=== PATIENT | female | born 1960 | race American Indian/Alaskan Native ===

== ENCOUNTER 2019-03-09 11:35 | Emergency (ER) | payer SELFPAY ==
--- NOTE | 2019-03-09 11:48 | Event Note ---
ED Screening Note ED Screening Note: pt presents with neck pain, tingling down her right arm/fingers, pain in the right arm had a neck fusion in 2009 no fall or injury This initial assessment/diagnostic orders/clinical plan/treatment(s) is/are subject to change based on patients health status, clinical progression and re- assessment by fellow clinical providers in the ED. Further treatment and workup at subsequent clinical providers discretion. Patient/guardian urged not to elope from the ED as their condition may be serious if not clinically assessed and managed. Initial orders include: CT C-spine
[2019-03-09 11:49] VITALS: BP 128/74
--- NOTE | 2019-03-09 12:57 | Emergency Department Report ---
ED General Adult HPI - General Chief complaint: Neck Pain/Injury Stated complaint: TINGLING IN (R) ARM Time Seen by Provider: 03/09/19 11:47 Source: patient Mode of arrival: Ambulatory Limitations: No Limitations - History of Present Illness Initial comments: Mrs. Burks is a pleasant healthy 58-year-old female with past history of neck fusion and cervical radiculopathy who presents with right arm tingling and throbbing. She had these symptoms prior to Fusion. The neck fusion occurred in [place] in 2009. Over the years the right arm pain has worsened. She went to make sure that she did not have any arthritis. She has a tingling throbbing sensation from her shoulder down to her hand. She states that sometimes her right arm feels contracted. She feels like the muscles are tense. -: Gradual, year(s) Quality: aching Consistency: constant Improves with: cold therapy Associated Symptoms: denies other symptoms - Related Data Previous Rx's Medication Instructions Recorded Last Taken Type Ibuprofen [Motrin] 800 mg PO Q8H #60 tablet 05/23/14 Unknown Rx oxyCODONE /ACETAMINOPHEN [Percocet 1 tab PO Q6HR PRN #20 tablet 05/23/14 Unknown Rx 5/325] Ibuprofen [Motrin 400 MG tab] 400 mg PO TID 4 Days #12 tablet 03/09/19 Unknown Rx oxyCODONE /ACETAMINOPHEN [Percocet 1 tab PO Q6HR PRN #10 tablet 03/09/19 Unknown Rx 5/325] Allergies Allergy/AdvReac Type Severity Reaction Status Date / Time No Known Allergies Allergy Verified 03/09/19 11:36 ED Review of Systems ROS: Stated complaint: TINGLING IN (R) ARM Other details as noted in HPI Constitutional: denies: fever, malaise Cardiovascular: denies: chest pain Gastrointestinal: denies: abdominal pain Neurological: paresthesias. denies: weakness ED Past Medical Hx - Past Medical History Previous Medical History?: No - Surgical History Additional Surgical History: FUSION ON NECK 2009, PLATE IN LEFT LEG - Social History Smoking Status: Never Smoker Substance Use Type: Alcohol - Medications Home Medications: Home Medications Medication Instructions Recorded Confirmed Last Taken Type Ibuprofen [Motrin] 800 mg PO Q8H #60 tablet 05/23/14 Unknown Rx oxyCODONE /ACETAMINOPHEN [Percocet 1 tab PO Q6HR PRN #20 tablet 05/23/14 Unknown Rx 5/325] Ibuprofen [Motrin 400 MG tab] 400 mg PO TID 4 Days #12 tablet 03/09/19 Unknown Rx oxyCODONE /ACETAMINOPHEN [Percocet 1 tab PO Q6HR PRN #10 tablet 03/09/19 Unknown Rx 5/325] ED Physical Exam - General Limitations: No Limitations General appearance: alert, in no apparent distress - Head Head exam: Present: atraumatic, normocephalic - Eye Eye exam: Present: normal appearance. Absent: scleral icterus, conjunctival injection - Neck Neck exam: Present: normal inspection, full ROM - Respiratory Respiratory exam: Absent: respiratory distress - Neurological Exam Neurological exam: Present: alert - Psychiatric Psychiatric exam: Present: normal affect, normal mood - Skin Skin exam: Present: warm, dry, intact, normal color - Other Other exam information: Full range of motion right arm moves fluidly intact strength ED Course Vital Signs 03/09/19 11:47 Temperature 98.3 F Pulse Rate 58 L Respiratory 18 Rate Blood Pressure 128/74 O2 Sat by Pulse 98 Oximetry ED Medical Decision Making - Radiology Data CT cervical spine: DDD no acute process - Medical Decision Making Ms. Burks presents with mild to moderate pain but cervical radiculopathy. Prescribed ibuprofen and Percocet. Strongly encouraged her to contact her health insurance for preferred in network provider for comprehensive outpatient care. Critical care attestation.: If time is entered above; I have spent that time in minutes in the direct care of this critically ill patient, excluding procedure time. ED Disposition Clinical Impression: Cervical radiculopathy, Degenerative disc disease, cervical Disposition: DC- TO HOME OR SELFCARE Is pt being admited?: No Does the pt Need Aspirin: No Condition: Stable Instructions: Cervical Radiculopathy (ED) Additional Instructions: Please contact your health insurance for a preferred in network primary care physician Prescriptions: Ibuprofen [Motrin 400 MG tab] 400 mg PO TID 4 Days #12 tablet oxyCODONE /ACETAMINOPHEN [Percocet 5/325] 1 tab PO Q6HR PRN #10 tablet PRN Reason: Pain Forms: Work/School Release Form(ED)
--- NOTE | 2019-03-09 13:50 | Cat Scan Report ---
CT cervical spine wo con INDICATION / CLINICAL INFORMATION: 58 years Female; neck pain, tingling right arm, hx of fusion. TECHNIQUE: Axial CT images of the cervical spine were obtained. Sagittal and coronal reformatted images were pr oduced. All CT scans at this location are performed using CT dose reduction for ALARA by means of aut omated exposure control. COMPARISON: None available. FINDINGS: POST-SURGICAL CHANGES: Anterior fusion seen from C4 through C6. Interbody fusion noted at these level s as well, which appears to be solid. ALIGNMENT: Normal cervical lordosis seen without significant scoliosis. VERTEBRAE: No signs of fracture. Vertebral bodies are grossly normal in height and nonoperative level s. Minimal uncinate hypertrophy seen on the right at C6-C7, resulting in mild foraminal narrowing. T here is also osseous foraminal narrowing on the right at the fused C5 - 6 level, from uncinate hypert rophy. INTRAVERTEBRAL DISCS: Disc space narrowing seen at C3-4. Mild disc disease suggested at this level, a s well as C6-7. No definitive signs of significant canal stenosis appreciated. PARASPINAL SOFT TISSUES: No significant abnormality. ADDITIONAL FINDINGS: None. IMPRESSION: 1. Degenerative and postoperative changes of the cervical spine as described above. No definitive cau se for patient's symptomatology seen. No definitive signs of epidural fluid collection or discitis. F ollow-up with MRI, as clinically warranted. Signer Name: Darien Barajas MD, III Signed: 03/09/2019 1:46 PM Workstation Name: [id number]
== END 2019-03-09 13:38 | disposition home or self-care (01) ==
LOC: ED 11:35
DX: M54.12 Radiculopathy, cervical region (principal); M50.30 Other cervical disc degeneration, unspecified cervical region; Z79.899 Other long term (current) drug therapy
CPT/HCPCS: 72125

== ENCOUNTER 2019-04-20 06:28 | Emergency (ER) | payer MEDICAID, OTHER ==
[2019-04-20 06:35] VITALS: BP 133/75
[2019-04-20 07:08] LABS: Basophils # (Auto) 0.1 K/mm3 (0.0-0.1); Basophils % (Auto) 1.3 % (0.0-1.8); Eosinophils # (Auto) 0.1 K/mm3 (0.0-0.4); Eosinophils % (Auto) 1.4 % (0.0-4.3); Hematocrit 37.1 % (30.3-42.9); Hemoglobin 12.2 gm/dl (10.1-14.3); Lymphocytes # (Auto) 2.1 K/mm3 (1.2-5.4); Lymphocytes % (Auto) 44.8 % (13.4-35.0); Mean Corpuscular HGB Conc 33 % (30-34); Mean Corpuscular Volume 89 fl (79-97); Monocytes # (Auto) 0.5 K/mm3 (0.0-0.8); Monocytes % (Auto) 9.8 % (0.0-7.3); Platelet Count 216 K/mm3 (140-440); Red Blood Count 4.19 M/mm3 (3.65-5.03); Red Cell Distribution Width 13.6 % (13.2-15.2)
[2019-04-20 07:14] LABS: Bacteria,Urine 1+ /HPF (Negative); Bilirubin,Urine NEG (Negative); Blood,Urine NEG (Negative); Color,Urine Yellow (Yellow); Mucus,Urine 2+ /HPF; Protein,Urine <15 mg/dL mg/dL (Negative); Urobilinogen,Urine < 2.0 mg/dL (<2.0)
--- NOTE | 2019-04-20 07:47 | Emergency Department Report ---
ED Abdominal Pain HPI - General Chief Complaint: Abdominal Pain Stated Complaint: ABD PAIN Time Seen by Provider: 04/20/19 07:04 Source: patient Mode of arrival: Ambulatory Limitations: No Limitations - History of Present Illness Initial Comments: This is a 58-year-old -Turkish female who presents to the emergency room with lower abdominal pain for one week. No significant Patient states she was visiting [facility] last week when symptoms started. She reports lower abdominal pain that is intermittent, sharp in intensity lasting for several minutes to 1 hour. She reports normal bowel movements, urinary frequency, and lower back pain. She denies nausea, vomiting, fever, chills, diarrhea, or constipation. MD Complaint: abdominal pain Onset/Timin -: week(s) Location: LLQ, RLQ Radiation: none Migration to: no migration Severity: moderate Severity scale (0 -10): 5 Quality: aching, sharp Consistency: intermittent Improves With: nothing Worsens With: nothing Associated Symptoms: denies other symptoms - Related Data Previous Rx's Medication Instructions Recorded Last Taken Type Ibuprofen [Motrin] 800 mg PO Q8H #60 tablet 05/23/14 Unknown Rx oxyCODONE /ACETAMINOPHEN [Percocet 1 tab PO Q6HR PRN #20 tablet 05/23/14 Unknown Rx 5/325] Ibuprofen [Motrin 400 MG tab] 400 mg PO TID 4 Days #12 tablet 03/09/19 Unknown Rx oxyCODONE /ACETAMINOPHEN [Percocet 1 tab PO Q6HR PRN #10 tablet 03/09/19 Unknown Rx 5/325] Allergies Allergy/AdvReac Type Severity Reaction Status Date / Time No Known Allergies Allergy Verified 03/09/19 11:36 ED Review of Systems ROS: Stated complaint: ABD PAIN Other details as noted in HPI Constitutional: denies: chills, fever Respiratory: denies: cough, shortness of breath, wheezing Cardiovascular: denies: chest pain, palpitations Gastrointestinal: abdominal pain. denies: nausea, diarrhea Genitourinary: denies: urgency, dysuria, discharge Musculoskeletal: back pain. denies: joint swelling, arthralgia Skin: denies: rash, lesions Neurological: denies: headache, weakness, paresthesias Psychiatric: denies: anxiety, depression ED Past Medical Hx - Past Medical History Previous Medical History?: No - Surgical History Past Surgical History?: Yes Additional Surgical History: FUSION ON NECK 2009, PLATE IN LEFT LEG - Social History Smoking Status: Never Smoker Substance Use Type: Alcohol - Medications Home Medications: Home Medications Medication Instructions Recorded Confirmed Last Taken Type Ibuprofen [Motrin] 800 mg PO Q8H #60 tablet 05/23/14 Unknown Rx oxyCODONE /ACETAMINOPHEN [Percocet 1 tab PO Q6HR PRN #20 tablet 05/23/14 Unknown Rx 5/325] Ibuprofen [Motrin 400 MG tab] 400 mg PO TID 4 Days #12 tablet 03/09/19 Unknown Rx oxyCODONE /ACETAMINOPHEN [Percocet 1 tab PO Q6HR PRN #10 tablet 03/09/19 Unknown Rx 5/325] ED Physical Exam - General Limitations: No Limitations General appearance: alert, in no apparent distress, obese - Respiratory Respiratory exam: Present: normal lung sounds bilaterally. Absent: respiratory distress - Cardiovascular Cardiovascular Exam: Present: regular rate, normal rhythm. Absent: systolic murmur, diastolic murmur, rubs, gallop - GI/Abdominal GI/Abdominal exam: Present: soft, tenderness (right lower quadrant and right upper quadrant), normal bowel sounds. Absent: distended, guarding, rebound, rigid, organomegaly, mass, pulsatile mass, hernia - Back Exam Back exam: Absent: CVA tenderness (R), CVA tenderness (L) - Neurological Exam Neurological exam: Present: alert, oriented X3 - Psychiatric Psychiatric exam: Present: normal affect, normal mood - Skin Skin exam: Present: warm, dry, intact, normal color. Absent: rash ED Course Vital Signs 04/20/19 06:34 Temperature 97.7 F Pulse Rate 66 Respiratory 18 Rate Blood Pressure 133/75 O2 Sat by Pulse 97 Oximetry ED Medical Decision Making - Lab Data Result diagrams: 04/20/19 06:48 04/20/19 06:48 Lab Results 04/20/19 04/20/19 04/20/19 Range/Units 06:48 06:48 Unknown WBC 4.7 (4.5-11.0) K/mm3 RBC 4.19 (3.65-5.03) M/mm3 Hgb 12.2 (10.1-14.3) gm/dl Hct 37.1 (30.3-42.9) % MCV 89 (79-97) fl MCH 29 (28-32) pg MCHC 33 (30-34) % RDW 13.6 (13.2-15.2) % Plt Count 216 (140-440) K/mm3 Lymph % (Auto) 44.8 H (13.4-35.0) % [place] % (Auto) 9.8 H (0.0-7.3) % Eos % (Auto) 1.4 (0.0-4.3) % Baso % (Auto) 1.3 (0.0-1.8) % Lymph # 2.1 (1.2-5.4) K/mm3 [place] # 0.5 (0.0-0.8) K/mm3 Eos # 0.1 (0.0-0.4) K/mm3 Baso # 0.1 (0.0-0.1) K/mm3 Seg Neutrophils % 42.7 (40.0-70.0) % Seg Neutrophils # 2.0 (1.8-7.7) K/mm3 Sodium 141 (137-145) mmol/L Potassium 3.9 (3.6-5.0) mmol/L Chloride 107.0 (98-107) mmol/L Carbon Dioxide 20 L (22-30) mmol/L Anion Gap 18 mmol/L BUN 16 (7-17) mg/dL Creatinine 0.5 L (0.7-1.2) mg/dL Estimated GFR > 60 ml/min BUN/Creatinine Ratio 32 % Glucose 118 H (65-100) mg/dL Calcium 9.1 (8.4-10.2) mg/dL Total Bilirubin 0.60 (0.1-1.2) mg/dL AST 18 (5-40) units/L ALT 13 (7-56) units/L Alkaline Phosphatase 89 (35-129) units/L Total Protein 7.2 (6.3-8.2) g/dL Albumin 4.2 (3.9-5) g/dL Albumin/Globulin Ratio 1.4 % Urine Color Yellow (Yellow) Urine Turbidity Clear (Clear) Urine pH 5.0 (5.0-7.0) Ur Specific [place] 1.029 (1.003-1.030) Urine Protein <15 mg/dl (Negative) mg/dL Urine Glucose (UA) Neg (Negative) mg/dL Urine Ketones Neg (Negative) mg/dL Urine Blood Neg (Negative) Urine Nitrite Neg (Negative) Urine Bilirubin Neg (Negative) Urine Urobilinogen < 2.0 (<2.0) mg/dL Ur Leukocyte Esterase Neg (Negative) Urine WBC (Auto) 1.0 (0.0-6.0) /HPF Urine RBC (Auto) 3.0 (0.0-6.0) /HPF U Epithel Cells (Auto) 1.0 (0-13.0) /HPF Urine Bacteria (Auto) 1+ (Negative) /HPF Urine Mucus 2+ /HPF - Radiology Data Radiology results: report reviewed CT ABDOMEN AND PELVIS WITH CONTRAST HISTORY: right lower quadrant and right upper quadrant pain COMPARISON: None TECHNIQUE: Routine abdominal and pelvic CT exam performed following intravenous contrast administration. Consent was obtained prior to the administration of the contrast. Note: All CT scans at this location are performed using CT dose reduction employed for [facility] by means of automated exposure control. CONTRAST: 100 mL Omnipaque 300. FINDINGS: CT ABDOMEN: Lung Bases: A small pericardial effusion. The lung bases are clear. Liver: Liver is mildly enlarged with the right lobe measuring 17 cm in length. A few tiny benign hepatic cysts in the right lobe. No liver mass or nodularity. The overall density of the liver is normal. Biliary: Normal gallbladder and bile ducts. No cholelithiasis. No pericholecystic fluid. Spleen: Normal and unenlarged. Pancreas: Normal. Adrenals: Normal. Kidneys: No stones, pelvocaliectasis, ureterectasis. No perinephric or periureteral stranding. No mass or cyst. Lymphatics: No lymphadenopathy. Vasculature: No significant abnormality. Bowel/Peritoneum: No significant abnormality. No free air. No free fluid. Normal appendix. CT PELVIC: : Normal uterus and ovaries. No adnexal mass or free fluid. Normal rectum and sigmoid colon. Osseous Structures: No significant abnormality. Additional Findings: Mild rectus diastases and a small fat-containing umbilical hernia. IMPRESSION: 1. Mild hepatomegaly but no other significant liver abnormality. 2. No cholelithiasis and no signs of acute cholecystitis. 3. No signs of pancreatitis. 4. No urinary calculus or signs of pyelonephritis. 5. Normal pelvis. - Medical Decision Making Patient seen by this provider. Vitals are stable and patient in no acute distress. Labs obtained and unremarkable. CT of abdomen and pelvis findings of 1. Mild hepatomegaly but no other significant liver abnormality. 2. No cholel ithiasis and no signs of acute cholecystitis. 3. No signs of pancreatitis. 4. No urinary calculus or signs of pyelonephritis. 5. Normal pelvis. Referral to PCP for follow up. Patient discharged home stable. Instructed to return to the ER with worsening symptoms. Critical care attestation.: If time is entered above; I have spent that time in minutes in the direct care of this critically ill patient, excluding procedure time. ED Disposition Clinical Impression: Abdominal pain Qualifiers: Abdominal location: lower abdomen, unspecified Qualified Code(s): R10.30 - Lower abdominal pain, unspecified Disposition: DC- TO HOME OR SELFCARE Is pt being admited?: No Does the pt Need Aspirin: No Condition: Stable Instructions: Abdominal Pain (ED) Additional Instructions: Follow-up with your primary care doctor or return to the emergency room with worsening symptoms. Referrals: MARGOT LIMON DO [Referring] - 3-5 Days Forms: Work/School Release Form(ED) Time of Disposition: 11:26
[2019-04-20 08:50] LABS: BUN/Creatinine Ratio 32; Blood Urea Nitrogen 16 mg/dL (7-17); Calcium 9.1 mg/dL (8.4-10.2); Hemolysis Index 7
[2019-04-20 09:15] LABS: Alanine Aminotransferase 13 units/L (7-56); Albumin 4.2 g/dL (3.9-5)
--- NOTE | 2019-04-20 10:33 | Cat Scan Report ---
CT ABDOMEN AND PELVIS WITH CONTRAST HISTORY: right lower quadrant and right upper quadrant pain COMPARISON: None TECHNIQUE: Routine abdominal and pelvic CT exam performed following intravenous contrast administrat ion. Consent was obtained prior to the administration of the contrast. Note: All CT scans at this [facility] ation are performed using CT dose reduction employed for ALARA by means of automated exposure control . CONTRAST: 100 mL Omnipaque 300. FINDINGS: CT ABDOMEN: Lung Bases: A small pericardial effusion. The lung bases are clear. Liver: Liver is mildly enlarged with the right lobe measuring 17 cm in length. A few tiny benign hepa tic cysts in the right lobe. No liver mass or nodularity. The overall density of the liver is normal. Biliary: Normal gallbladder and bile ducts. No cholelithiasis. No pericholecystic fluid. Spleen: Normal and unenlarged. Pancreas: Normal. Adrenals: Normal. Kidneys: No stones, pelvocaliectasis, ureterectasis. No perinephric or periureteral stranding. No mas s or cyst. Lymphatics: No lymphadenopathy. Vasculature: No significant abnormality. Bowel/Peritoneum: No significant abnormality. No free air. No free fluid. Normal appendix. CT PELVIC: : Normal uterus and ovaries. No adnexal mass or free fluid. Normal rectum and sigmoid colon. Osseous Structures: No significant abnormality. Additional Findings: Mild rectus diastases and a small fat-containing umbilical hernia. IMPRESSION: 1. Mild hepatomegaly but no other significant liver abnormality. 2. No cholelithiasis and no signs of acute cholecystitis. 3. No signs of pancreatitis. 4. No urinary calculus or signs of pyelonephritis. 5. Normal pelvis. Signer Name: Jan Sofia MD Signed: 04/20/2019 10:28 AM Workstation Name: [id number]
== END 2019-04-20 11:35 | disposition home or self-care (01) ==
LOC: ED 06:28
DX: R10.31 Right lower quadrant pain (principal); R10.32 Left lower quadrant pain; Z79.899 Other long term (current) drug therapy
CPT/HCPCS: 36415; 74177; 80053; 81001; 85025; 99284; Q9967

== ENCOUNTER 2019-10-26 19:42 | Inpatient (IN) | payer OTHER ==
[2019-10-26 20:43] LABS: Basophils # (Auto) 0.1 K/mm3 (0.0-0.1); Basophils % (Auto) 1.2 % (0.0-1.8); Eosinophils # (Auto) 0.1 K/mm3 (0.0-0.4); Eosinophils % (Auto) 1.5 % (0.0-4.3); Hematocrit 37.8 % (30.3-42.9); Hemoglobin 12.3 gm/dl (10.1-14.3); Lymphocytes # (Auto) 2.6 K/mm3 (1.2-5.4); Lymphocytes % (Auto) 47.2 % (13.4-35.0); Mean Corpuscular HGB Conc 33 % (30-34); Mean Corpuscular Volume 89 fl (79-97); Monocytes # (Auto) 0.3 K/mm3 (0.0-0.8); Monocytes % (Auto) 5.9 % (0.0-7.3); Platelet Count 236 K/mm3 (140-440); Red Blood Count 4.24 M/mm3 (3.65-5.03); Red Cell Distribution Width 13.4 % (13.2-15.2)
[2019-10-26 20:58] LABS: BUN/Creatinine Ratio 23; Blood Urea Nitrogen 14 mg/dL (7-17); Calcium 9.3 mg/dL (8.4-10.2); Hemolysis Index 9
--- NOTE | 2019-10-26 21:11 | XRay Report ---
CHEST 2 VIEWS INDICATION / CLINICAL INFORMATION: Chest Pain. COMPARISON: 06/18/13. FINDINGS: SUPPORT DEVICES: None. HEART / MEDIASTINUM: The heart size and pulmonary vasculature are normal. The aorta is normal in denisa constantino. LUNGS / PLEURA: No significant pulmonary or pleural abnormality. No pneumothorax. ADDITIONAL FINDINGS: There are surgical changes in the lower cervical spine. IMPRESSION: No acute abnormality or significant change. Signer Name: Lowell Green MD Signed: 10/26/2019 9:07 PM Workstation Name: [id number]
[2019-10-26] MEDS ORDERED: NITROGLYCERIN 2% OINT 1 GM TP ONE (23:01)
[2019-10-26] MEDS ORDERED: ASPIRIN 325 MG TAB PO ONE (23:01)
--- NOTE | 2019-10-26 23:07 | Emergency Department Report ---
HPI - General Chief Complaint: Chest Pain Time Seen by Provider: 10/26/19 22:53 - HPI HPI: Room 5 The patient is a 59-year-old female present with a chief complaint of chest pain. The patient states for the past 2 to 3 days she has had intermittent sub sternal chest tightness. Patient denies shortness of breath, nausea/vomiting or diaphoresis. Patient denies cough or fever. Patient states she is never had a stress test or cardiac catheterization. ED Past Medical Hx - Past Medical History Previous Medical History?: No Hx Hypertension: Yes - Surgical History Past Surgical History?: Yes Additional Surgical History: FUSION ON NECK 2009, PLATE IN LEFT LEG - Family History Family history: no significant - Social History Smoking Status: Never Smoker Substance Use Type: None - Medications Home Medications: Home Medications Medication Instructions Recorded Confirmed Last Taken Type Ibuprofen [Motrin] 800 mg PO Q8H #60 tablet 05/23/14 Unknown Rx oxyCODONE /ACETAMINOPHEN [Percocet 1 tab PO Q6HR PRN #20 tablet 05/23/14 Unknown Rx 5/325] Ibuprofen [Motrin 400 MG tab] 400 mg PO TID 4 Days #12 tablet 03/09/19 Unknown Rx oxyCODONE /ACETAMINOPHEN [Percocet 1 tab PO Q6HR PRN #10 tablet 03/09/19 Unknown Rx 5/325] ED Review of Systems ROS: Stated complaint: TIGHTNESS IN CHEST Other details as noted in HPI Constitutional: no symptoms reported. denies: diaphoresis Eyes: denies: eye pain ENT: denies: throat pain Respiratory: no symptoms reported. denies: shortness of breath Cardiovascular: chest pain Endocrine: no symptoms reported Gastrointestinal: denies: nausea, vomiting Genitourinary: denies: dysuria Musculoskeletal: denies: back pain Neurological: denies: headache Physical Exam - Physical Exam Vital Signs: Vital Signs 10/26/19 19:46 Temperature 98.4 F Pulse Rate 75 Respiratory 20 Rate Blood Pressure 117/70 O2 Sat by Pulse 94 Oximetry Physical Exam: GENERAL: The patient is well-developed well-nourished female lying on stretcher not appearing to be in acute distress. [] HEENT: Normocephalic. Atraumatic. Extraocular motions are intact. Patient has moist mucous membranes. NECK: Supple. Trachea midline CHEST/LUNGS: Clear to auscultation. There is no respiratory distress noted. HEART/CARDIOVASCULAR: Regular. There is no tachycardia. There is no gallop rub or murmur. ABDOMEN: Abdomen is soft, nontender. Patient has normal bowel sounds. There is no abdominal distention. SKIN: There is no rash. There is no diaphoresis. NEURO: The patient is awake, alert, and oriented. The patient is cooperative. The patient has normal speech MUSCULOSKELETAL: There is no evidence of acute injury. ED Course Vital Signs 10/26/19 19:46 Temperature 98.4 F Pulse Rate 75 Respiratory 20 Rate Blood Pressure 117/70 O2 Sat by Pulse 94 Oximetry ED Medical Decision Making - Lab Data Result diagrams: 10/26/19 20:23 10/26/19 20:23 Laboratory Tests 10/26/19 10/26/19 10/26/19 20:23 20:23 22:21 WBC 5.4 RBC 4.24 Hgb 12.3 Hct 37.8 MCV 89 MCH 29 MCHC 33 RDW 13.4 Plt Count 236 Lymph % (Auto) 47.2 H [place] % (Auto) 5.9 Eos % (Auto) 1.5 Baso % (Auto) 1.2 Lymph # 2.6 [place] # 0.3 Eos # 0.1 Baso # 0.1 Seg Neutrophils % 44.2 Seg Neutrophils # 2.4 Sodium 142 Potassium 3.7 Chloride 104.6 Carbon Dioxide 20 L Anion Gap 21 BUN 14 Creatinine 0.6 L Estimated GFR > 60 BUN/Creatinine Ratio 23 Glucose 98 Calcium 9.3 Troponin T < 0.010 < 0.010 - EKG Data -: EKG Interpreted by Me EKG shows normal: sinus rhythm Rate: normal - EKG Data When compared to previous EKG there are: previous EKG unavailable Interpretation: nonspecific ST-T wave april (T wave inversion lead III) - Radiology Data Radiology results: report reviewed (Chest x-ray), image reviewed (Chest x-ray) interpreted by me: Chest x-ray-no focal infiltrates, no pneumothorax Chest x-ray (read by radiologist)-no acute abnormality or significant change - Differential Diagnosis ACS, pericarditis, GERD Critical care attestation.: If time is entered above; I have spent that time in minutes in the direct care of this critically ill patient, excluding procedure time. ED Disposition Clinical Impression: Chest pain Disposition: - OP ADMIT IP TO THIS HOSP Is pt being admited?: Yes Does the pt Need Aspirin: Yes Condition: Fair Instructions: Chest Pain (ED) Referrals: PRIMARY CARE,MD [Primary Care Provider] - 3-5 Days Time of Disposition: 23:13 (Hospitalist paged (Dr. Sarita Holt)) SEB score - Seb Score Age > 65: (0) No Aspirin use within the Past 7 Days: (0) No 3 or more CAD Risk Factors: (0) No 2 or more Angina events in past 24 hrs: (1) Yes Known CAD with more than 50% Stenosis: (0) No Elevated Cardiac Markers: (0) No ST Deviation Greater than 0.5mm: (0) No SEB Score: 1
--- NOTE | 2019-10-26 23:42 | History and Physical Report ---
History of Present Illness History of present illness: 59-year-old woman with a history of hypertension comes emergency room for evaluation. She complains of chest pain in the epigastric area that started 2 days ago. She describes it as a dull, tightness, intermittent lasting for less than 1 minute, intensity 4/10, no radiation, cannot identify exacerbating factor. Denies nausea vomiting, shortness of breath, diaphoresis or palpitation. The patient will be admitted for chest pain evaluation, SEB score 1 Review Of Systems: Constitutional: no weight loss, fever, chills Ears, eyes, nose, mouth and throat: no nasal congestion, no nasal discharge, no sinus pressure, blurry vision, diplopia Neck: No neck pain or rigidity. Cardiovascular: No palpitations, chest pain Respiratory: No shortness of breath, cough Gastrointestinal: No hematochezia Genitourinary : no dysuria, frequency Musculoskeletal: no muscle ache , joint pain Integumentary: no rash, no pruritis Neurological: no parathesias, focal weakness Endocrine: no cold or heat intolerance, no polyuria or polydipsia Hematologic/Lymphatic: no easy bruising, no easy bleeding, no gland swelling Allergic/Immunologic: no urticaria, no angioedema. PAST MEDICAL HISTORY: hypertension PAST SURGICAL HISTORY: Neck, leg SOCIAL HISTORY: Denies alcohol, tobacco, drugs FAMILY HISTORY: Hypertension PUI?: No Medications and Allergies Allergies Allergy/AdvReac Type Severity Reaction Status Date / Time No Known Allergies Allergy Verified 03/09/19 11:36 Home Medications Medication Instructions Recorded Confirmed Last Taken Type Ibuprofen [Motrin] 800 mg PO Q8H #60 tablet 05/23/14 Unknown Rx oxyCODONE /ACETAMINOPHEN [Percocet 1 tab PO Q6HR PRN #20 tablet 05/23/14 Unknown Rx 5/325] Ibuprofen [Motrin 400 MG tab] 400 mg PO TID 4 Days #12 tablet 03/09/19 Unknown Rx oxyCODONE /ACETAMINOPHEN [Percocet 1 tab PO Q6HR PRN #10 tablet 03/09/19 Unknown Rx 5/325] Exam - Physical Exam Narrative exam: Gen. appearance: Patient lying in bed, no apparent distress HEENT: Normocephalic, atraumatic, pupils equally round and reactive to light, extraocular movement intact, and no sclericterus,. No JVD or thyromegaly or nodule,neck supple, no carotid bruit ,mucous membranes moist, no exudate or erythema Heart: S1, S2, regular rate and rhythm Lungs: Clear bilaterally, breathing comfortable Abdomen: Positive bowel sounds, nontender, nondistended, no organomegaly Extremity: no edema, cyanosis, clubbing Skin: No rash, nodules, warm, dry Neuro: Cranial nerves II to XII intact, speech is fluent, moves extremities, sensory intact - Constitutional Vitals: Temp Pulse Resp BP Pulse Ox 98.4 F 75 20 117/70 94 10/26/19 19:46 10/26/19 19:46 10/26/19 19:46 10/26/19 19:46 10/26/19 19:46 Results - Labs CBC & Chem 7: 10/26/19 20:23 10/26/19 20:23 Labs: Abnormal lab results 10/26/19 10/26/19 Range/Units 20:23 20:23 Lymph % (Auto) 47.2 H (13.4-35.0) % Carbon Dioxide 20 L (22-30) mmol/L Creatinine 0.6 L (0.7-1.2) mg/dL - Imaging and Cardiology EKG: image reviewed Chest x-ray: report reviewed Assessment and Plan Assessment Chest pain Check cardiac enzymes, stress test Start aspirin, IV morphine Hypertension Continue outpatient medications DVT prophylaxis
[2019-10-27] MEDS ORDERED: ACETAMINOPHEN 325 MG TAB PO PRN (00:32)
[2019-10-27] MEDS ORDERED: ONDANSETRON 4 MG/2 ML INJ IV PRN (00:32)
[2019-10-27] MEDS ORDERED: MORPHINE 2 MG/1 ML INJ IV PRN (00:32)
[2019-10-27] MEDS ORDERED: hydrALAZINE 20 MG/1 ML INJ IV PRN (00:36)
[2019-10-27 04:11] LABS: Basophils # (Auto) 0.1 K/mm3 (0.0-0.1); Basophils % (Auto) 1.1 % (0.0-1.8); Eosinophils # (Auto) 0.1 K/mm3 (0.0-0.4); Eosinophils % (Auto) 1.4 % (0.0-4.3); Hematocrit 36.8 % (30.3-42.9); Hemoglobin 12.2 gm/dl (10.1-14.3); Lymphocytes # (Auto) 2.6 K/mm3 (1.2-5.4); Lymphocytes % (Auto) 47.6 % (13.4-35.0); Mean Corpuscular HGB Conc 33 % (30-34); Mean Corpuscular Volume 88 fl (79-97); Monocytes # (Auto) 0.4 K/mm3 (0.0-0.8); Monocytes % (Auto) 7.4 % (0.0-7.3); Platelet Count 230 K/mm3 (140-440); Red Blood Count 4.18 M/mm3 (3.65-5.03); Red Cell Distribution Width 13.5 % (13.2-15.2)
[2019-10-27 04:24] LABS: BUN/Creatinine Ratio 34; Blood Urea Nitrogen 17 mg/dL (7-17); Calcium 8.9 mg/dL (8.4-10.2); Hemolysis Index 19
[2019-10-27] MEDS ORDERED: REGADENOSON 0.4 MG/5 ML INJ IV ONE (09:57)
--- NOTE | 2019-10-27 10:57 | Consultation ---
History of Present Illness Consult date: 10/27/19 Requesting physician: TOM PAULA Consult reason: chest pain History of present illness: The pt is a 59 YO female with past medical history significant for chronic back pain s/p vertebral fusion. She is previously unknown to our practice, she sees a PCP regularly. She presented with c/o chest pain for the past 2-3 days. She describes her chest pain as an intermittent, nonradiating, midsternal, aching pain which occurs mostly at night when she tries to go to sleep. She also reports exertional dyspnea and poor exercise tolerance with easy fatigability (cannot climb a flight of stairs without stopping to rest) for the past several months. She sometimes experiences chest tightness with exertion. She denies any n/v, diaphoresis, dizziness or syncope. No cough, fever, chills. She reports that her father in his 50s of AMI. Pt works in home health care. Past History Past Medical History: other (as per HPI) Social history: denies: smoking, alcohol abuse, prescription drug abuse Medications and Allergies Allergies Allergy/AdvReac Type Severity Reaction Status Date / Time No Known Allergies Allergy Verified 03/09/19 11:36 Home Medications Medication Instructions Recorded Confirmed Last Taken Type Ibuprofen [Motrin] 800 mg PO Q8H #60 tablet 05/23/14 10/27/19 Unknown Rx oxyCODONE /ACETAMINOPHEN [Percocet 1 tab PO Q6HR PRN #10 tablet 03/09/1910/26 Unknown Rx 5/325] Active Meds: Active Medications Acetaminophen (Tylenol) 650 mg PO Q4H PRN PRN Reason: Pain MILD(1-3)/Fever >100.5/SOLIS Aspirin (Aspirin) 325 mg PO QDAY [facility] Enoxaparin Sodium (Enoxaparin) 40 mg SUB-Q QDAY [facility] Hydralazine HCl (Apresoline) 5 mg IV Q6H PRN PRN Reason: Hypertension Morphine Sulfate (Morphine) 2 mg IV Q4H PRN PRN Reason: Pain, Moderate (4-6) Ondansetron HCl (Zofran) 4 mg IV Q8H PRN PRN Reason: Nausea And Vomiting Sodium Chloride (Sodium Chloride Flush Syringe 10 Ml) 10 ml IV BID [facility] Sodium Chloride (Sodium Chloride Flush Syringe 10 Ml) 10 ml IV PRN PRN PRN Reason: LINE FLUSH Review of Systems Constitutional: no weight loss, no weight gain, no fever, no chills, no sweats Ears, nose, mouth and throat: no ear pain, no nose pain, no sinus pressure, no sinus pain Cardiovascular: chest pain, dyspnea on exertion, decreased exercise tolerance, no orthopnea, no palpitations, no rapid/irregular heart beat, no edema, no synco pe, no lightheadedness, no high blood pressure, no leg edema Respiratory: dyspnea on exertion, no cough, no congestion, no wheezing, no pain on inspiration Gastrointestinal: no abdominal pain, no nausea, no vomiting, no diarrhea, no constipation, no change in bowel habits Genitourinary Female: no pelvic pain, no flank pain, no dysuria, no urinary frequency, no urgency Musculoskeletal: neck pain (chronic), no shooting arm pain, no arm numbness/tingling, no shooting leg pain, no leg numbness/tingling Integumentary: no rash, no pruritis, no redness, no sores, no wounds Neurological: no head injury, no paralysis, no weakness, no parathesias, no n umbness, no tingling, no seizures, no syncope Psychiatric: no anxiety Endocrine: no cold intolerance, no heat intolerance Hematologic/Lymphatic: no easy bruising Allergic/Immunologic: no urticaria Physical Examination Vital Signs Temp Pulse Resp BP Pulse Ox 98.4 F 75 20 117/70 94 10/26/19 19:46 10/26/19 19:46 10/26/19 19:46 10/26/19 19:46 10/26/19 19:46 General appearance: no acute distress HEENT: Positive: PERRL, Normocephaly, Mucus Membranes Moist Neck: Positive: neck supple, trachea midline Cardiac: Positive: Reg Rate and Rhythm, S1/S2 Lungs: Positive: Decreased Breath Sounds Neuro: Positive: Grossly Intact Abdomen: Negative: Tender Skin: Negative: Rash Musculoskeletal: No Pain Extremities: Absent: edema Results 10/27/19 03:44 10/27/19 03:44 CBC 10/26/19 10/27/19 Range/Units 20:23 03:44 WBC 5.4 5.6 (4.5-11.0) K/mm3 RBC 4.24 4.18 (3.65-5.03) M/mm3 Hgb 12.3 12.2 (10.1-14.3) gm/dl Hct 37.8 36.8 (30.3-42.9) % Plt Count 236 230 (140-440) K/mm3 Lymph # 2.6 2.6 (1.2-5.4) K/mm3 [place] # 0.3 0.4 (0.0-0.8) K/mm3 Eos # 0.1 0.1 (0.0-0.4) K/mm3 Baso # 0.1 0.1 (0.0-0.1) K/mm3 Comprehensive Metabolic Panel 10/26/19 10/27/19 Range/Units 20:23 03:44 Sodium 142 138 (137-145) mmol/L Potassium 3.7 3.7 (3.6-5.0) mmol/L Chloride 104.6 105.9 (98-107) mmol/L Carbon Dioxide 20 L 23 (22-30) mmol/L BUN 14 17 (7-17) mg/dL Creatinine 0.6 L 0.5 L (0.7-1.2) mg/dL Glucose 98 98 (65-100) mg/dL Calcium 9.3 8.9 (8.4-10.2) mg/dL - Imaging and Cardiology Echo: pending EKG: report reviewed, image reviewed EKG interpretations - Telemetry EKG Rhythm: Sinus Rhythm - EKG Sinus rhythms and dysrhythmias: sinus rhythm Assessment and Plan AMI r/o. S/p treadmill stress test this AM which was equivocal. Given pt's clinical presentation and family history of CAD, coronary angiography is recommended for definitive diagnosis. Indications, potential risks and benefits of LHC reviewed with pt and she is agreeable to proceed with LHC in AM. NPO after MN. Obtain echo. Initiate ASA, statin, BB. The patient has been seen in conjunction with Dr. Kam Callahan who agrees with the assessment and plan of care. - Patient Problems (1) Chest pain Current Visit: Yes Status: Acute (2) Chronic back pain Current Visit: Yes Status: Chronic
--- NOTE | 2019-10-27 11:26 | Progress Note ---
Assessment and Plan Assessment and plan: --Chest pain; Serial cardiac enzymes echocardiogram Abnormal stress test Continue aspirin beta-blockers nitrates statins And morphine, Cardiology consult, possible left heart catheterization tomorrow --Gastroesophageal reflux disease; Protonix --Hypertension; moderate control Continue current antihypertensives and PRN medications --Obesity; BMI 32.5 Patient needs weight reduction when medically stable --DVT prophylaxis; Lovenox Monitor closely and adjust management as needed Cardiology recommendations noted and appreciated History Interval history: Patient seen and examined at the bedside Patient's chart and medications reviewed Admitted with chest pain, underwent stress test Which was abnormal per preliminary report by cardiology nurse practitioner Consulted cardiology for possible heart cath tomorrow Patient feels slightly better Complains of mild nausea no vomiting Vital signs reviewed PUI?: No Hospitalist Physical - Constitutional Vitals: Temp Pulse Resp BP Pulse Ox 97.7 F 57 L 20 125/70 99 10/27/19 07:24 10/27/19 10:39 10/27/19 07:24 10/27/19 07:24 10/27/19 07:24 General appearance: Present: no acute distress, well-nourished, obese - EENT Eyes: Present: PERRL, EOM intact - Neck Neck: Present: supple, normal ROM - Respiratory Respiratory effort: normal Respiratory: bilateral: diminished, negative: rales, rhonchi, wheezing - Cardiovascular Rhythm: regular Heart Sounds: Present: S1 & S2 - Extremities Extremities: no ischemia, No edema - Abdominal General gastrointestinal: soft, non-tender, non-distended, normal bowel sounds - Integumentary Integumentary: Present: clear, warm - Psychiatric Psychiatric: appropriate mood/affect, cooperative - Neurologic Neurologic: CNII-XII intact, moves all extremities SEB score - Seb Score Age > 65: (0) No Aspirin use within the Past 7 Days: (0) No 3 or more CAD Risk Factors: (0) No 2 or more Angina events in past 24 hrs: (1) Yes Known CAD with more than 50% Stenosis: (0) No Elevated Cardiac Markers: (0) No ST Deviation Greater than 0.5mm: (0) No SEB Score: 1 Results - Labs CBC & Chem 7: 10/27/19 03:44 10/27/19 03:44 Labs: Laboratory Last Values WBC 5.6 K/mm3 (4.5-11.0) 10/27/19 03:44 RBC 4.18 M/mm3 (3.65-5.03) 10/27/19 03:44 Hgb 12.2 gm/dl (10.1-14.3) 10/27/19 03:44 Hct 36.8 % (30.3-42.9) 10/27/19 03:44 MCV 88 fl (79-97) 10/27/19 03:44 MCH 29 pg (28-32) 10/27/19 03:44 MCHC 33 % (30-34) 10/27/19 03:44 RDW 13.5 % (13.2-15.2) 10/27/19 03:44 Plt Count 230 K/mm3 (140-440) 10/27/19 03:44 Lymph % (Auto) 47.6 % (13.4-35.0) H 10/27/19 03:44 [place] % (Auto) 7.4 % (0.0-7.3) H 10/27/19 03:44 Eos % (Auto) 1.4 % (0.0-4.3) 10/27/19 03:44 Baso % (Auto) 1.1 % (0.0-1.8) 10/27/19 03:44 Lymph # 2.6 K/mm3 (1.2-5.4) 10/27/19 03:44 [place] # 0.4 K/mm3 (0.0-0.8) 10/27/19 03:44 Eos # 0.1 K/mm3 (0.0-0.4) 10/27/19 03:44 Baso # 0.1 K/mm3 (0.0-0.1) 10/27/19 03:44 Seg Neutrophils % 42.5 % (40.0-70.0) 10/27/19 03:44 Seg Neutrophils # 2.4 K/mm3 (1.8-7.7) 10/27/19 03:44 Sodium 138 mmol/L (137-145) 10/27/19 03:44 Potassium 3.7 mmol/L (3.6-5.0) 10/27/19 03:44 Chloride 105.9 mmol/L (98-107) 10/27/19 03:44 Carbon Dioxide 23 mmol/L (22-30) 10/27/19 03:44 Anion Gap 13 mmol/L 10/27/19 03:44 BUN 17 mg/dL (7-17) 10/27/19 03:44 Creatinine 0.5 mg/dL (0.7-1.2) L 10/27/19 03:44 Estimated GFR > 60 ml/min 10/27/19 03:44 BUN/Creatinine Ratio 34 % 10/27/19 03:44 Glucose 98 mg/dL (65-100) 10/27/19 03:44 Calcium 8.9 mg/dL (8.4-10.2) 10/27/19 03:44 Troponin T < 0.010 ng/mL (0.00-0.029) 10/27/19 03:44 Rossi/IV: Voiding Method Toilet IV Catheter Type [left hand] Peripheral IV Active Medications - Current Medications Current Medications: Generic Name Dose Route Start Last Admin Trade Name Freq PRN Reason Stop Dose Admin Acetaminophen 650 mg 10/27/19 00:32 Tylenol PO Q4H PRN Pain MILD(1-3)/Fever >100.5/SOLIS Aspirin 325 mg 10/27/19 10:00 Aspirin PO QDAY [facility] Atorvastatin Calcium 40 mg 10/27/19 22:00 Lipitor PO QHS [facility] Enoxaparin Sodium 40 mg 10/27/19 10:00 Enoxaparin SUB-Q QDAY [facility] Sodium Chloride 500 mls @ 50 mls/hr 10/27/19 13:00 Nacl 0.9% 500 Ml IV 10/27/19 22:59 DIRECT [facility] Metoprolol Tartrate 12.5 mg 10/27/19 22:00 Metoprolol PO BID [facility] Morphine Sulfate 2 mg 10/27/19 00:32 Morphine IV Q4H PRN Pain, Moderate (4-6) Ondansetron HCl 4 mg 10/27/19 00:32 Zofran IV Q8H PRN Nausea And Vomiting Sodium Chloride 10 ml 10/27/19 10:00 Sodium Chloride Flush Syringe 10 Ml IV BID [facility] Sodium Chloride 10 ml 10/27/19 00:32 Sodium Chloride Flush Syringe 10 Ml IV PRN PRN LINE FLUSH
[2019-10-27] MEDS ORDERED: SODIUM CHLORIDE 0.9% 500 ML 500 ML IV SCH (13:00)
[2019-10-27] MEDS: ENOXAPARIN 40 MG/0.4 ML INJ SUB-Q SCH (13:52)
[2019-10-27] MEDS: ASPIRIN 325 MG TAB PO SCH (13:52)
[2019-10-27] MEDS: FAMOTIDINE 20 MG/2 ML INJ IV SCH (21:15)
[2019-10-27] MEDS: METOPROLOL TARTRATE 25 MG TAB PO SCH (21:16)
[2019-10-28 04:07] LABS: Hematocrit 37.8 % (30.3-42.9); Hemoglobin 12.2 gm/dl (10.1-14.3); Mean Corpuscular HGB Conc 32 % (30-34); Mean Corpuscular Volume 89 fl (79-97); Platelet Count 231 K/mm3 (140-440); Red Blood Count 4.25 M/mm3 (3.65-5.03); Red Cell Distribution Width 13.1 % (13.2-15.2)
[2019-10-28 04:28] LABS: BUN/Creatinine Ratio 25; Blood Urea Nitrogen 15 mg/dL (7-17); Calcium 8.8 mg/dL (8.4-10.2); HDL Cholesterol 53 mg/dL (40-59); Hemolysis Index 5; LDL Cholesterol,Direct 150 mg/dL (50-130)
[2019-10-28 04:46] LABS: INR 0.94 (0.87-1.13)
[2019-10-28 06:04] LABS: Anisocytosis 1+; Eosinophils % (Manual) 0 % (0.0-4.3); Total Cells Counted 100
[2019-10-28 06:05] LABS: Platelet Estimate Consistent w Auto
[2019-10-28] MEDS ORDERED: ASPIRIN 325 MG TAB ONE (07:47)
[2019-10-28] MEDS ORDERED: SODIUM CHLORIDE 0.9% 500 ML 500 ML ONE (07:47)
[2019-10-28] MEDS: ASPIRIN 325 MG TAB PO SCH ×2 (07:49→10:34)
[2019-10-28] MEDS ORDERED: SODIUM CHLORIDE 0.9% 500 ML 500 ML IV SCH (08:00)
[2019-10-28] MEDS ORDERED: LIDOCAINE (2%) 20 MG/1 ML VIAL 20 ML MDV INFILTRATI ONE (08:57)
[2019-10-28] MEDS ORDERED: HEPARIN/NS 5000 UNIT/500ML 1,000 ML IR ONE (08:57)
[2019-10-28] MEDS ORDERED: VERAPAMIL 5 MG/2 ML INJ ONE (08:57)
[2019-10-28] MEDS ORDERED: MIDAZOLAM 2 MG/2 ML INJ ONE (09:18)
[2019-10-28] MEDS ORDERED: fentaNYL 100 MCG/2 ML INJ ONE (09:18)
[2019-10-28] MEDS: LIDOCAINE (2%) 20 MG/1 ML VIAL 20 ML MDV INFILTRATI ONE ×3 (09:39→09:45)
[2019-10-28] MEDS: NITROGLYCERIN SYRINGE 3 ML ONE ×2 (09:40→09:44)
[2019-10-28] MEDS: HEPARIN 10,000 UNITS/10 ML VIAL ONE ×2 (09:44→09:46)
[2019-10-28] MEDS: ENOXAPARIN 40 MG/0.4 ML INJ SUB-Q SCH (10:33)
[2019-10-28] MEDS: FAMOTIDINE 20 MG/2 ML INJ IV SCH (10:34)
[2019-10-28] MEDS: METOPROLOL TARTRATE 25 MG TAB PO SCH (10:34)
--- NOTE | 2019-10-28 11:01 | Cardiac Catherization Report ---
The patient is here for heart catheterization. REFERRING PHYSICIAN: Sarita Holt MD INDICATION FOR PROCEDURE: The patient is an exceedingly pleasant 59-year-old female with multiple risk factors including strong family history with abnormal/equivocal stress test and persistent very typical chest pain. The options were discussed with her. She would like to proceed with left heart catheterization. Risks, benefits, potential alternatives explained at length prior to obtaining informed consent. PROCEDURE IN DETAIL: The patient was brought to catheterization lab in a postabsorptive state, prepped and draped in sterile fashion. An 8 mL of 2% lidocaine used to anesthetize the right wrist. A standard 6-[place] hydrophilic sheath used to cannulate the right radial artery via modified Seldinger technique. All exchanges performed to exchange a J-tip guidewire. JL3.5 catheter used to engage the left main. No dampening or ventricularization. Cineangiography performed in multiple projections. JR4 catheter was used to cross the aortic valve under fluoroscopic guidance. Left ventriculography performed in 30 BROCK and 30 KHMER projections via hand injections, catheter flushed. Manual pullback performed with continuous pressure monitoring. Catheter used to engage the right coronary. No dampening or ventricularization. Cineangiography performed in multiple projections. Next, due to the persistent recurrent chest pain and unremarkable coronaries, we decided to proceed with root aortography with a pigtail catheter in KHMER projection. Next, catheter removed from the body of wire, sheath removed. Manual pressure used to achieve hemostasis. I directly supervised the administration of moderate sedation from 9:36 a.m. to 10:00 a.m. with fentanyl and Versed. There were no immediate complications noted. DATA: Aortic pressure is 120/70, LV pressure is 120, LVP of 12 mmHg. Left ventriculography reveals normal systolic performance with estimated ejection fraction of 55-60%. No evidence of aortic stenosis. CORONARY ANATOMY: This is a right dominant system. Left main without significant disease, bifurcates left anterior descending and left circumflex. Left main without significant disease. LAD without significant disease. Left circumflex without significant disease. SEB 3 flow throughout. Right coronary is a moderate sized vessel, courses AV groove, distally bifurcates in the posterior and posterolateral branches. No discrete stenoses identified. SEB 3 flow. Root aortogram reveals normal contour, no evidence of dissection, penetrating aortic ulcer, or aortic insufficiency, normal great vessel anatomy. CONCLUSIONS: 1. No angiographic evidence of significant epicardial coronary disease in this right dominant system. 2. Normal left ventricular systolic performance, estimated ejection fraction of 55-60%. 3. No evidence of aortic stenosis. 4. Normal LVEDP. 5. Normal root aortography without evidence of aortic dissection, penetrating aortic ulcer, or aortic insufficiency. At this point, the patient is clinically stable, chest pain is likely noncardiac. Continue aggressive risk factor modification. We will hold beta blockade as the patient has sinus bradycardia. Follow up with us in the office. Standard radial care. Results of procedure explained in length to the patient and family. All questions and concerns were addressed. JOB# [id number] ADARSH/ELENI
--- NOTE | 2019-10-28 11:33 | Progress Note ---
Assessment and Plan S/p LHC this AM which showed normal coronaries. tte reviewed - normal EF, no significant abnormalities. Chest pain currently resolved. Currently stable cardiac status. Pt may discharge from cardiology standpoint on present cardiac regimen. Recommend follow up in our office with Dr. Kam Callahan within 1 month ([phone]). The patient has been seen in conjunction with Dr. Kam Callahan who agrees with the assessment and plan of care. - Patient Problems (1) Chest pain Current Visit: Yes Status: Resolved (2) Chronic back pain Current Visit: Yes Status: Chronic (3) Normal coronary arteries Current Visit: Yes Status: Chronic Subjective Date of service: 10/28/19 Principal diagnosis: cp Interval history: pt for [facility], no current complaints. tele reviewed - in SR with SB noted overnight. PUI?: No Objective Last Vital Signs Temp 97.3 F L 10/28/19 10:29 Pulse 43 L 10/28/19 10:29 Resp 20 10/28/19 10:29 BP 118/73 10/28/19 10:29 Pulse Ox 100 10/28/19 10:29 - Physical Examination General: No Apparent Distress HEENT: Positive: PERRL, Normocephaly, Mucus Membranes Moist Neck: Positive: neck supple, trachea midline Cardiac: Positive: Reg Rate and Rhythm, S1/S2 Lungs: Positive: Decreased Breath Sounds Neuro: Positive: Grossly Intact Abdomen: Negative: Tender Skin: Negative: Rash Musculoskeletal: No Pain Extremities: Absent: edema - Labs and Meds Coagulation 10/28/19 Range/Units 03:25 PT 12.7 (12.2-14.9) Sec. INR 0.94 (0.87-1.13) Lipids 10/28/19 Range/Units 03:25 Triglycerides 142 (2-149) mg/dL Cholesterol 212 H (50-199) mg/dL HDL Cholesterol 53 (40-59) mg/dL Cholesterol/HDL Ratio 4.00 % CBC 10/28/19 Range/Units 03:25 WBC 4.7 (4.5-11.0) K/mm3 RBC 4.25 (3.65-5.03) M/mm3 Hgb 12.2 (10.1-14.3) gm/dl Hct 37.8 (30.3-42.9) % Plt Count 231 (140-440) K/mm3 Comprehensive Metabolic Panel 10/28/19 Range/Units 03:25 Sodium 139 (137-145) mmol/L Potassium 4.0 (3.6-5.0) mmol/L Chloride 104.2 (98-107) mmol/L Carbon Dioxide 21 L (22-30) mmol/L BUN 15 (7-17) mg/dL Creatinine 0.6 L (0.7-1.2) mg/dL Glucose 114 H (65-100) mg/dL Calcium 8.8 (8.4-10.2) mg/dL - Imaging and Cardiology EKG: report reviewed, image reviewed Echo: report reviewed - Telemetry EKG Rhythm: Sinus Rhythm - EKG Sinus rhythms and dysrhythmias: sinus rhythm
[2019-10-28 11:41] VITALS: BP 118/70
--- NOTE | 2019-10-28 12:06 | Discharge Summary ---
Providers - Providers Date of Admission: 10/27/19 16:45 Date of discharge: 10/28/19 Attending physician: TOM PAULA 10/27/19 11:22 Consult to Physician [CONS] Routine Comment: Consulting Provider: PRASAD BALDWIN Physician Instructions: Reason For Exam: Abnormal stress test 10/28/19 11:29 Consult to Cardiac Rehabilitation [CONS] Routine Reason For Exam: Cardiac Rehab Evaluation Primary care physician: METAL [facility]ER Hospitalization Reason for admission: Chest pain Condition: Stable Pertinent studies: Chest x-ray; no acute abnormality Echocardiogram; normal EF 50 to 55% Stress test; equivocal Heart cath; nonobstructive coronaries, normal EF 50 to 55% Hospital course: 59-year-old woman with a history of hypertension comes emergency room for evaluation. She complains of chest pain in the epigastric area that started 2 days ago. She describes it as a dull, tightness, intermittent lasting for less than 1 minute, intensity 4/10, no radiation, cannot identify exacerbating factor. Denies nausea vomiting, shortness of breath, diaphoresis or palpitation. The patient will be admitted for chest pain evaluation, Patient was admitted symptomatically managed as patient had multiple risk factors, underwent stress test which was equivocal Cardiology evaluated the patient, underwent left heart catheterization, nonobstructive coronaries, normal ejection fraction Cardiology recommended optimizing her medications , advised weight reduction, and follow-up per schedule Today patient is comfortable no new complaints vital signs stable physical examinations unremarkable stable at discharge Discharge diagnosis: --Chest pain; Serial cardiac enzymes echocardiogram Abnormal stress test Continue aspirin beta-blockers nitrates statins And morphine, Cardiology consult, possible left heart catheterization tomorrow --Gastroesophageal reflux disease; Protonix --Hypertension; moderate control Continue current antihypertensives and PRN medications --Obesity; BMI 32.5 Patient needs weight reduction when medically stable --DVT prophylaxis; Lovenox Stable at discharge Disposition: DC-01 TO HOME OR SELFCARE Time spent for discharge: 32 min Core Measure Documentation - Palliative Care Palliative Care/ Comfort Measures: Not Applicable - Core Measures Any of the following diagnoses?: none Exam - Constitutional Vitals: Temp Pulse Resp BP Pulse Ox 97.3 F L 51 L 20 118/70 100 10/28/19 11:40 10/28/19 11:40 10/28/19 11:40 10/28/19 11:40 10/28/19 11:40 General appearance: Present: no acute distress, well-nourished - EENT Eyes: Present: PERRL, EOM intact - Neck Neck: Present: supple, normal ROM - Respiratory Respiratory effort: normal Respiratory: negative: rales, rhonchi, wheezing - Cardiovascular Rhythm: regular Heart Sounds: Present: S1 & S2 - Extremities Extremities: no ischemia, No edema Peripheral Pulses: within normal limits - Abdominal General gastrointestinal: Present: soft, non-tender, non-distended, normal bowel sounds - Integumentary Integumentary: Present: clear, warm - Musculoskeletal Musculoskeletal: strength equal bilaterally - Psychiatric Psychiatric: appropriate mood/affect, cooperative - Neurologic Neurologic: moves all extremities Plan Activity: no restrictions Diet: low cholesterol Additional Instructions: If your symptoms become worse contact MD or go to emergency room Follow up with: PRIMARY CARE, [Primary Care Provider] - 3-5 Days PRASAD BALDWIN MD [Staff Physician] - 7 Days Prescriptions: AtorvaSTATin [Lipitor] 40 mg PO QHS #30 tablet
[2019-10-28] MEDS ORDERED: FAMOTIDINE 20 MG TAB PO SCH (22:00)
== END 2019-10-28 15:10 | disposition home or self-care (01) | DRG 392 ==
LOC: ED 19:42 → OBSVTOIN 23:41 → INTOOBSV 23:41 → 4A 23:41 → UNDOADMOB 23:41 → OBSVTOIN 10-27 16:45 → 4A 10-27 16:45
PROVIDERS: ADMIT Internal Medicine; ATTEND Internal Medicine
PROC: 4A023N7 Measurement of Cardiac Sampling and Pressure, Left Heart, Percutaneous Approach (ICD-10-PCS; principal; 2019-10-28)
PROC: B2111ZZ Fluoroscopy of Multiple Coronary Arteries using Low Osmolar Contrast (ICD-10-PCS; 2019-10-28)
PROC: B2151ZZ Fluoroscopy of Left Heart using Low Osmolar Contrast (ICD-10-PCS; 2019-10-28)
DX: K21.9 Gastro-esophageal reflux disease without esophagitis (principal); I10 Essential (primary) hypertension; E66.9 Obesity, unspecified; Z68.33 Body mass index [BMI] 33.0-33.9, adult; G89.29 Other chronic pain; M54.9 Dorsalgia, unspecified; Z82.49 Family history of ischemic heart disease and other diseases of the circulatory system; Z68.32 Body mass index [BMI] 32.0-32.9, adult
CPT/HCPCS: 36415; 71046; 80048; 80061; 82962; 84484; 85007; 85025; 85610; 93005; 93010; 93017; 93306; 93458; 93567; G0378; A9270-GY; C1894; J1644; J1650; J2250; J2785; J3010; J7040; Q9967